=== PATIENT | male | born 1940 | race Caucasian/White ===

== ENCOUNTER 2022-12-29 08:01 | Outpatient (RCR) | payer MEDICARE, SELFPAY | END 2023-03-01 17:00 | disposition home or self-care (01) | LOC: HO.WCC 08:01 | PROVIDERS: PCP Family Medicine; Visit Provider Physician Assistant | DX: L98.492 Non-pressure chronic ulcer of skin of other sites with fat layer exposed (principal); T80.89XA Other complications following infusion, transfusion and therapeutic injection, initial encounter; G62.9 Polyneuropathy, unspecified; D50.9 Iron deficiency anemia, unspecified; I38 Endocarditis, valve unspecified; Z95.2 Presence of prosthetic heart valve; Z95.0 Presence of cardiac pacemaker; Z79.01 Long term (current) use of anticoagulants | CPT/HCPCS: 11042; 17250 ==